=== PATIENT | female | born 1990 | race Caucasian/White ===

== ENCOUNTER 2017-01-20 12:51 | Emergency (ER) | payer SELFPAY ==
[2017-01-20] MEDS ORDERED: KETOROLAC TROMETHAMINE 60 MG/2 ML SDV IM ONE (14:08)
--- NOTE | 2017-01-20 14:11 | ER Document Report ---
ED Extremity Problem, Lower - General Chief Complaint: Knee Pain Stated Complaint: RIGHT KNEE PAIN Mode of Arrival: Ambulatory Information source: Patient TRAVEL OUTSIDE OF THE [place] IN LAST 30 DAYS: No - HPI Location: Knee Occurred: Other - 2 days ago Where: Home Notes: Patient states that she is going with her children in her yard 2 days ago when she stepped in a hole and twisted her right knee. She's had pain in the right knee since this occurred. Pain is worse when she straightens her leg and there is weight. Seems to be better with rest. She has taken her 's tramadol and 800 mg ibuprofen without significant relief of pain. She denies any fevers , redness, swelling, numbness, tingling, weakness. She denies any other injuries. No fevers. She denies any nausea vomiting diarrhea. No chest pain shortness breath. No other complaints at this time. - Related Data Allergies/Adverse Reactions: No Known Allergies Allergy (Verified 01/20/17 13:11) Past Medical History - Social History Smoking Status: Unknown if Ever Smoked Family History: Arthritis, CAD, CVA, DM, Hyperlipidemia, Hypertension, Malignancy - Meds include, Thyroid Disfunction Patient has suicidal ideation: No Patient has homicidal ideation: No Neurological Medical History: Reports: Hx Migraine Renal/ Medical History: Denies: Hx Peritoneal Dialysis Surgical Hx: Negative - Immunizations Immunizations up to date: Yes - He was admitted to the Diphtheria, Pertussis, Tetanus Vaccination: Yes Review of Systems - Review of Systems -: Yes All other systems reviewed and negative Physical Exam - Vital signs Vitals: Temp Pulse Resp BP Pulse Ox 98.5 F 77 16 112/67 99 01/20/17 13:11 01/20/17 13:11 01/20/17 13:11 01/20/17 13:11 01/20/17 13:11 - Notes Notes: GENERAL: alert, cooperative, nontoxic, no distress. HEAD: normocephalic, atraumatic EYES: conjunctiva pink without discharge, no external redness or swelling. EARS: no external swelling, no external redness NOSE: atraumatic, no external swelling MOUTH/THROAT: mucous membranes moist and pink NECK: soft, supple, full range of motion, no meningismus. CHEST: no distress, lungs clear and equal throughout. No wheezing, rales, rhonchi. CARDIAC: regular rate and rhythm, no murmur, normal capillary refill, normal pulses. BACK: full range of motion, no CVA tenderness. EXTREMITIES: Tenderness to palpation into the medial aspect of the right knee. There is no effusion. There is no obvious deformities. Normal straight leg raise. There is no ligament instability, normal anterior and posterior drawer. She has normal pulse and sensation distally. There is no redness. Remainder of the muscle skull exam is unremarkable. NEURO: alert and oriented 3, no focal deficits. PYSCH: appropriate mood, affect. Patient is cooperative. SKIN: pink, warm, dry, no rash. Course - Re-evaluation Re-evalutation: 01/20/17 15:24 Patient is nontoxic and stable vitals. The patient twisted her knee 2 days ago and continues to have right knee pain. She has no ligament instability on exam. She has a normal straight leg raise. She has no signs of infection. She has normal neurovascular exam. X-ray show no acute fracture. She would place an Alan wrap and given crutches as needed for comfort. Follow-up if not better in one week, sooner for increased pain, fever, redness, or for any further concerns. The patient's emergency department workup and current diagnosis were explained to the patient and or family. Follow-up instructions were provided. Medications if prescribed were discussed. Instructions for when to return to the emergency department including specific worrisome symptoms were discussed with the patient and/or family. - Vital Signs Vital signs: Temp Pulse Resp BP Pulse Ox 98.5 F 77 16 112/67 99 01/20/17 13:11 01/20/17 13:11 01/20/17 13:11 01/20/17 13:11 01/20/17 13:11 Procedures - Immobilization right knee Pre-Proc Neuro Vasc Exam: Normal Immobilizer type: Alan wrap Performed by: PCT Post-Proc Neuro Vasc Exam: Normal Alignment checked and good: Yes Discharge - Discharge Clinical Impression: Strain of right knee Qualifiers: Encounter type: initial encounter Qualified Code(s): S86.911A - Strain of unspecified muscle(s) and tendon(s) at lower leg level, right leg, initial encounter Condition: Stable Disposition: HOME, SELF-CARE Instructions: Use of Crutches ([facility]), Ice & Elevation ([facility]), Sprained Knee ([facility]) Additional Instructions: Take medications as prescribed. Wear Alan wrap and use crutches as needed for pain. Apply ice to sore area. Follow-up if not better in one week, sooner for increased pain, fever, redness, numbness, tingling, weakness, any further concerns. Prescriptions: Diclofenac Sodium [Voltaren] 75 mg PO BID #20 tablet. Referrals: ISAIAS GOFF, DO [ACTIVE STAFF] - Follow up as needed
[2017-01-20 15:45] VITALS: BP 117/67
== END 2017-01-20 15:45 | disposition home or self-care (01) ==
LOC: ER 12:51
DX: S86.911A Strain of unspecified muscle(s) and tendon(s) at lower leg level, right leg, initial encounter (principal); M25.561 Pain in right knee; X58.XXXA Exposure to other specified factors, initial encounter
CPT/HCPCS: 99283; 96372; 73562; J1885

== ENCOUNTER 2018-01-20 14:02 | Emergency (ER) | payer SELFPAY ==
--- NOTE | 2018-01-20 14:40 | ER Document Report ---
HPI - HPI Patient complains to provider of: Left hand injury Onset: Other - 2 days ago Onset/Duration: Persistent Quality of pain: Achy Pain Level: 1 Context: Patient states that the wind caught her screen door and closed on her left hand 2 days ago. Patient states area was initially very swollen and bruised and then gradually redness started to develop around the original bruise yesterday. Patient states she went to work and her employer required her to come get evaluated for her injury today. Associated Symptoms: Other - Left hand pain. denies: Fever Exacerbated by: Movement Relieved by: Denies Similar symptoms previously: No Recently seen / treated by doctor: No - ROS ROS below otherwise negative: Yes Systems Reviewed and Negative: Yes All other systems reviewed and negative - CONSTITUTIONAL Constitutional: DENIES: Fever - NEURO Neurology: DENIES: Weakness - REPRODUCTIVE Reproductive: DENIES: : - MUSCULOSKELETAL Musculoskeletal: REPORTS: Extremity pain, Swelling - DERM Skin Color: Erythema Skin Problems: None Past Medical History - General Information source: Patient - Social History Smoking Status: Current Every Day Smoker Smoking Education Provided: Yes Frequency of alcohol use: None Drug Abuse: None 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 Family History: Arthritis, CAD, CVA, DM, Hyperlipidemia, Hypertension, Malignancy - Meds include, Thyroid Disfunction - Medical History Medical History: Negative Neurological Medical History: Reports: Hx Migraine Renal/ Medical History: Denies: Hx Peritoneal Dialysis Surgical Hx: Negative - Immunizations Immunizations up to date: Yes - He was admitted to the Diphtheria, Pertussis, Tetanus Vaccination: Yes Vertical Provider Document - CONSTITUTIONAL Agree With Documented VS: Yes Exam Limitations: No Limitations General Appearance: WD/WN, No Apparent Distress - INFECTION CONTROL TRAVEL OUTSIDE OF THE [place] IN LAST 30 DAYS: No - HEENT HEENT: Atraumatic, Normocephalic - NECK Neck: Normal Inspection - RESPIRATORY Respiratory: No Respiratory Distress - CARDIOVASCULAR Pulses: Normal: Radial - MUSCULOSKELETAL/EXTREMETIES Musculoskeletal/Extremeties: MAEW, Tender - Left hand tenderness over left fourth metacarpal with overlying swelling - NEURO Level of Consciousness: Awake, Alert, Appropriate Motor/Sensory: No Motor Deficit - DERM Integumentary: Warm, Dry. negative: Abscess Notes: Dorsal aspect of left hand erythematous Course - Re-evaluation Re-evalutation: 01/20/18 15:30 Pt presents with crush injury to left hand. No evidence of fracture noted on x ray. Patient states it. Initially just had a localized bruising but today she noticed erythema extending from around the initial area of ecchymosis. Patient without any obvious injury to the skin. Area with normal skin temperature although does have expanding erythema concerning for developing cellulitis. Cover with short course of antibiotics with good return precautions given. No concern for tenosynovitis. - Vital Signs Vital signs: Temp Pulse Resp BP Pulse Ox 98.4 F 84 18 123/83 100 01/20/18 14:06 01/20/18 14:06 01/20/18 14:06 01/20/18 14:06 01/20/18 14:06 - Diagnostic Test Radiology reviewed: Image reviewed, Reports reviewed Procedures - Immobilization Left Hand Pre-Proc Neuro Vasc Exam: Normal Immobilizer type: Cock-up Performed by: RN Post-Proc Neuro Vasc Exam: Normal Alignment checked and good: Yes Discharge - Discharge Clinical Impression: Hand crush injury Qualifiers: Encounter type: initial encounter Laterality: left Qualified Code(s): S67.22XA - Crushing injury of left hand, initial encounter Cellulitis Qualifiers: Site of cellulitis: extremity Site of cellulitis of extremity: upper extremity Laterality: left Qualified Code(s): L03.114 - Cellulitis of left upper limb Condition: Stable Disposition: HOME, SELF-CARE Instructions: Anti-Inflammatory Medication ([facility]), Cellulitis ([facility]), Cephalexin ([facility]), Crush Injury ([facility]), Temporary Splint ([facility]) Additional Instructions: Return immediately for any new or worsening symptoms Followup with your primary care provider, call tomorrow to make a followup appointment Follow-up with orthopedic doctor for any continued pain or problems Prescriptions: Cephalexin Monohydrate [Keflex 500 mg Capsule] 500 mg PO Q6H 5 Days capsule Naproxen [Naprosyn 250 Nmg Tablet] 1 tab PO BID #14 tablet Forms: Smoking Cessation Education, Return to Work Referrals: [facility] [Provider Group] - Follow up as needed
--- NOTE | 2018-01-20 15:17 | RADIOLOGY REPORT (SQ) ---
EXAM DESCRIPTION: HAND LEFT 3 VIEWS COMPLETED DATE/TIME: 01/20/2018 3:01 pm REASON FOR STUDY: crush injury COMPARISON: None. EXAM PARAMETERS: NUMBER OF VIEWS: Three views. TECHNIQUE: AP, lateral and oblique radiographic images acquired of the left hand. LIMITATIONS: None. FINDINGS: MINERALIZATION: Normal. BONES: No acute fracture or dislocation. No worrisome bone lesions. JOINTS: No effusions. SOFT TISSUES: No soft tissue swelling. No foreign body. OTHER: No other significant finding. IMPRESSION: NEGATIVE STUDY OF THE LEFT HAND. NO RADIOGRAPHIC EVIDENCE OF ACUTE INJURY. TECHNICAL DOCUMENTATION: JOB ID: [id number] [employer]- All Rights Reserved Reading location - IP/workstation name: [email or web address]
[2018-01-20] MEDS ORDERED: CEPHALEXIN 500 MG CAPSULE PO ONE (15:27)
[2018-01-20 16:24] VITALS: BP 117/72
== END 2018-01-20 16:19 | disposition home or self-care (01) ==
LOC: ER 14:02
DX: S67.22XA Crushing injury of left hand, initial encounter (principal); L03.114 Cellulitis of left upper limb; F17.200 Nicotine dependence, unspecified, uncomplicated; W20.8XXA Other cause of strike by thrown, projected or falling object, initial encounter
CPT/HCPCS: 99283; 73130; L3908